=== PATIENT | male | born 1940 | race Caucasian/White ===

== ENCOUNTER 2019-04-30 12:41 | Inpatient (IN) ==
[2019-04-30] MEDS ORDERED: *HR* Heparin 5,000 UNIT/ML VIAL IVP PRN ×2 (12:56)
[2019-04-30] MEDS ORDERED: *HR* Heparin 5,000 UNIT/ML VIAL IVP ONE (12:56)
[2019-04-30 13:41] LABS: Hematocrit 43.9 % (37.5-50.1); Hemoglobin 15.3 g/dL (12.9-16.9); Mean Corpuscular HGB Conc 34.9 g/dL (31.6-35.5); Mean Corpuscular Hemoglobin 30.8 pg (28.0-33.3); Mean Corpuscular Volume 88.5 fL (83.0-100.0); Mean Platelet Volume 9.1 fL (9.4-12.4); Platelet Count 194 K/mcL (140-400); Red Blood Count 4.96 M/mcL (4.19-5.50); Red Cell Distribution Width 13.4 % (11.5-14.5); White Blood Count 4.8 K/mcL (4.3-11.1)
[2019-04-30 13:45] LABS: Heparin anti-factor XA UFH 0.02 IU/mL (0.30-0.70); Prothrombin Time 11.4 Seconds (9.4-12.1)
[2019-04-30] MEDS: Heparin 25,000 UNIT/250 ML D5W 25,000 UNIT/250 ML IV.SOLN IVC SCH (14:39)
[2019-04-30 15:43] LABS: Chol/HDL Ratio 5.8 (0-4.9)
[2019-04-30 15:46] LABS: BUN/Creatinine Ratio 18 (6-26); Blood Urea Nitrogen 17 mg/dL (8-23); Calcium 9.7 mg/dL (8.6-10.3); Carbon Dioxide 30 mEq/L (23-29); Chloride 103 mEq/L (98-107); Glucose 96 mg/dL (70-105); Osmolality,Calculated 289 (280-300); Potassium 4.3 mEq/L (3.5-5.1); Sodium 139 mEq/L (136-145); eGFR For African Americans > 60 (> 60); eGFR For Non-African Americans > 60 (> 60)
[2019-04-30 16:02] LABS: Troponin I 0.11 ng/mL (< 0.04)
[2019-05-01] MEDS: Aspirin Enteric Coated 81 MG Tablet PO SCH (08:42)
[2019-05-01 10:17] LABS: Estimated Average Glucose 117 mg/dl
[2019-05-01] MEDS: Heparin 25,000 UNIT/250 ML D5W 25,000 UNIT/250 ML IV.SOLN IVC SCH (11:18)
[2019-05-01] MEDS ORDERED: Lidocaine 2% Syringe 100 MG/5 ML IV ONE (13:59)
[2019-05-01] MEDS ORDERED: Sodium Bicarbonate 50 MEQ/50 ML VIAL IVC ONE (13:59)
[2019-05-01] MEDS ORDERED: Mannitol 25% vial 12.5 GM/50 ML VIAL IVP ONE (13:59)
[2019-05-01] MEDS ORDERED: D5% in Water 250 ML IV BAG IV ONE (13:59)
[2019-05-01] MEDS ORDERED: Tranexamic Acid 1,000 MG/10 ML VIAL IVP ONE (13:59)
[2019-05-01] MEDS ORDERED: Heparin 1,000 UNITS/500 mL IV.SOLN IVC ONE (13:59)
[2019-05-01] MEDS ORDERED: *HR* Heparin 10,000 UNIT/10 ML VIAL IV ONE (13:59)
[2019-05-01] MEDS ORDERED: *HR* Phenylephrine 10 MG/ML VIAL IVC ONE (13:59)
[2019-05-01] MEDS ORDERED: *HR* Magnesium Sulfate 2 GM/50 ML PIGGYBACK IVPB ONE (13:59)
[2019-05-01] MEDS ORDERED: Albumin Human 25% 25 GM/100 ML IV.SOLN IV ONE (13:59)
[2019-05-01] MEDS ORDERED: Heparin 1,000 UNITS/500 mL 500 ML ONE (15:20)
[2019-05-01] MEDS ORDERED: *HR* Heparin 10,000 UNIT/10 ML VIAL ONE (15:20)
[2019-05-01] MEDS ORDERED: 0.9 % Sodium Chloride 1,000 ML ONE ×2 (15:20→15:27)
[2019-05-01] MEDS ORDERED: Nitroglycerin 1,000 MCG/10 ML VIAL IV ONE (15:20)
[2019-05-01] MEDS ORDERED: ISOVUE-370 200 ML INFUS..BTL ONE (15:20)
[2019-05-01] MEDS ORDERED: *HR* Midazolam HCl 2 MG/2 ML VIAL ONE (15:46)
[2019-05-01] MEDS ORDERED: *HR* FentaNYL (PF) 100 MCG/2 ML VIAL ONE (15:46)
[2019-05-01] MEDS: Chlorhexidine Rinse 15 ML MOUTHWASH MM SCH (21:32)
[2019-05-02] MEDS: Chlorhexidine Rinse 15 ML MOUTHWASH MM SCH ×2 (05:44→19:44)
[2019-05-02] MEDS ORDERED: Aspirin 81 MG TAB.CHEW PO ONE (06:00)
[2019-05-02] MEDS ORDERED: *HR* FentaNYL (PF) 1,000 MCG/20 ML VIAL ONE (06:45)
[2019-05-02] MEDS ORDERED: *HR* Midazolam HCl 5 MG/5 ML VIAL IVP ONE (06:45)
[2019-05-02] MEDS ORDERED: *HR* Propofol 200 MG/20 ML VIAL IVP ONE (06:45)
[2019-05-02] MEDS ORDERED: *HR* Rocuronium Bromide 50 MG/5 ML VIAL ONE ×3 (06:47→11:36)
[2019-05-02] MEDS ORDERED: *HR* PHENYLEPHRINE 1,000 MCG/10 ML SYRINGE IVP ONE (06:47)
[2019-05-02] MEDS ORDERED: Dexamethasone 4 MG/ML VIAL ONE (06:47)
[2019-05-02] MEDS ORDERED: *HR* Magnesium Sulfate 1 GM/2 ML VIAL ONE (06:48)
[2019-05-02] MEDS ORDERED: Famotidine 20 MG/2 ML VIAL ONE (06:48)
[2019-05-02] MEDS ORDERED: Tranexamic Acid 1,000 MG/10 ML VIAL ONE (06:57)
[2019-05-02] MEDS: CeFAZolin Syr 2,000MG/20 ML 2,000 MG/20 ML SYRINGE IVPB ONE ×2 (07:39→08:30)
[2019-05-02] MEDS: Aspirin Enteric Coated 81 MG Tablet PO SCH (07:40)
[2019-05-02] MEDS ORDERED: Dextrose 50 % in Water (Vial) 30 ML, Sodium Bicarbonate 20 MEQ, Lidocaine 1% 5 ML, Insu... TH ONE ×3 (07:45)
[2019-05-02] MEDS ORDERED: Insulin Human Regular 100 UNIT in 0.9 % Sodium Chloride 100 ML IV PRN (07:45)
[2019-05-02] MEDS ORDERED: Heparin 15,000 UNIT in 0.9 % Sodium Chloride 500 ML IV ONE (07:45)
[2019-05-02] MEDS ORDERED: Dextrose 50 % in Water (Vial) 30 ML, Sodium Bicarbonate 20 MEQ, Potassium Chloride 15 M... TH ONE (07:45)
[2019-05-02] MEDS ORDERED: Norepinephrine 4 MG in 0.9 % Sodium Chloride 250 ML IVC PRN (07:45)
[2019-05-02] MEDS ORDERED: Vancomycin 1,000 MG VIAL ONE (07:52)
[2019-05-02] MEDS ORDERED: Lidocaine 2% Syringe 100 MG/5 ML ONE (07:57)
[2019-05-02 08:18] LABS: ABG Base Excess -1 mEq/L (-2 to 3); ABG Chloride 107 mEq/L (98-107); ABG Glucose 106 mg/dL (60-95); ABG HCO3 26 mEq/L (21-27); ABG Oxygen Saturation 100 % (95-98); ABG PCO2 51 mmHg (35-45); ABG PH 7.31 pH Units (7.32-7.45); ABG PO2 274 mmHg (85-104); ABG TCO2 27 mEq/L (20-26)
[2019-05-02] MEDS ORDERED: *HR* FentaNYL (PF) 250 MCG/5 ML VIAL ONE (09:29)
[2019-05-02] MEDS ORDERED: Calcium Gluconate 1,000 MG/10 ML VIAL ONE (09:51)
[2019-05-02] MEDS ORDERED: Protamine Sulfate 250 MG/25 ML VIAL IVP ONE (09:51)
[2019-05-02 09:59] LABS: ABG Base Excess -1 mEq/L (-2 to 3); ABG Chloride 105 mEq/L (98-107); ABG Glucose 118 mg/dL (60-95); ABG HCO3 25 mEq/L (21-27); ABG Ionized Calcium 1.21 mmol/L (1.15-1.35); ABG Oxygen Saturation 99 % (95-98); ABG PCO2 42 mmHg (35-45); ABG PH 7.37 pH Units (7.32-7.45); ABG PO2 127 mmHg (85-104); ABG TCO2 26 mEq/L (20-26)
[2019-05-02 10:40] LABS: ABG Base Excess -1 mEq/L (-2 to 3); ABG Chloride 103 mEq/L (98-107); ABG Glucose 170 mg/dL (60-95); ABG HCO3 24 mEq/L (21-27); ABG Ionized Calcium 1.07 mmol/L (1.15-1.35); ABG Oxygen Saturation 100 % (95-98); ABG PCO2 38 mmHg (35-45); ABG PO2 428 mmHg (85-104); ABG TCO2 25 mEq/L (20-26)
[2019-05-02 11:14] LABS: ABG Base Excess -2 mEq/L (-2 to 3); ABG Chloride 100 mEq/L (98-107); ABG Glucose 144 mg/dL (60-95); ABG HCO3 22 mEq/L (21-27); ABG Ionized Calcium 1.09 mmol/L (1.15-1.35); ABG Oxygen Saturation 100 % (95-98); ABG PCO2 35 mmHg (35-45); ABG PH 7.41 pH Units (7.32-7.45); ABG PO2 344 mmHg (85-104); ABG TCO2 23 mEq/L (20-26)
[2019-05-02] MEDS ORDERED: 0.9 % Sodium Chloride 500 ML ONE (11:18)
[2019-05-02 11:19] LABS: ABG Base Excess 2 mEq/L (-2 to 3); ABG Chloride 102 mEq/L (98-107); ABG Glucose 118 mg/dL (60-95); ABG HCO3 26 mEq/L (21-27); ABG Ionized Calcium 1.46 mmol/L (1.15-1.35); ABG Oxygen Saturation 100 % (95-98); ABG PCO2 42 mmHg (35-45); ABG PH 7.41 pH Units (7.32-7.45); ABG PO2 276 mmHg (85-104); ABG TCO2 28 mEq/L (20-26)
[2019-05-02 11:47] LABS: ABG Base Excess -2 mEq/L (-2 to 3); ABG Chloride 104 mEq/L (98-107); ABG Glucose 99 mg/dL (60-95); ABG HCO3 23 mEq/L (21-27); ABG Ionized Calcium 1.18 mmol/L (1.15-1.35); ABG Oxygen Saturation 100 % (95-98); ABG PCO2 40 mmHg (35-45); ABG PH 7.37 pH Units (7.32-7.45); ABG PO2 305 mmHg (85-104); ABG TCO2 24 mEq/L (20-26)
[2019-05-02] MEDS: niCARdipine 20 MG in 0.9 % Sodium Chloride 192 ML IVC SCH ×6 (12:30→22:01)
[2019-05-02] MEDS ORDERED: Ondansetron 4 MG/2 ML VIAL IVP PRN (12:41)
[2019-05-02] MEDS ORDERED: Acetaminophen 650 MG RECTAL SUPP RC PRN (12:41)
[2019-05-02] MEDS ORDERED: Insulin Regular, Human 100 UNIT/ML IV PRN (12:41)
[2019-05-02] MEDS ORDERED: Calcium Gluconate 1gm/50mL 1 GM/50 ML BAG IVPB PRN (12:41)
[2019-05-02] MEDS ORDERED: Potassium Chloride 40 MEQ/200 ML BAG IVPB PRN (12:41)
[2019-05-02] MEDS ORDERED: Acetaminophen 325 MG TABLET PO PRN (12:41)
[2019-05-02] MEDS ORDERED: *HR* Dextrose 50 % in Water (Syg) 50 ML SYRINGE IVP PRN (12:41)
[2019-05-02] MEDS ORDERED: Insulin Human Regular 100 UNIT in 0.9 % Sodium Chloride 100 ML IVC SCH (12:45)
[2019-05-02] MEDS ORDERED: Norepinephrine 4 MG in 0.9 % Sodium Chloride 250 ML IVC SCH (12:45)
[2019-05-02 12:58] LABS: ABG Base Excess 1 mEq/L (-2 to 3); ABG HCO3 28 mEq/L (21-27); ABG Oxygen Saturation 87 % (95-98); ABG PCO2 52 mmHg (35-45); ABG PH 7.34 pH Units (7.32-7.45); ABG PO2 57 mmHg (85-104); ABG TCO2 30 mEq/L (20-26); Blood Gas VT 500 cc
[2019-05-02 13:01] LABS: Basophils % 0.3 %; Eosinophils % 0.3 %; Hematocrit 38.5 % (37.5-50.1); Hemoglobin 13.8 g/dL (12.9-16.9); Immature Granulocytes % 1.8 % (0-4); Lymphocytes % 7.9 %; Mean Corpuscular HGB Conc 35.8 g/dL (31.6-35.5); Mean Corpuscular Hemoglobin 31.6 pg (28.0-33.3); Mean Corpuscular Volume 88.1 fL (83.0-100.0); Mean Platelet Volume 9.3 fL (9.4-12.4); Monocytes # 0.8 K/mcL (0.0-1.3); Monocytes % 6.2 %; Neutrophils # 10.4 K/mcL (1.6-8.9); Platelet Count 147 K/mcL (140-400); Red Blood Count 4.37 M/mcL (4.19-5.50); Red Cell Distribution Width 13.5 % (11.5-14.5); Segmented Neutrophils % 83.5 %
[2019-05-02 13:02] LABS: White Blood Count 12.5 K/mcL (4.3-11.1)
[2019-05-02 13:10] LABS: INR 1.2; Prothrombin Time 13.3 Seconds (9.4-12.1)
[2019-05-02 13:13] LABS: Activated Partial Thrombo Time 25.6 Seconds (26.0-36.0)
[2019-05-02 13:17] LABS: BUN/Creatinine Ratio 18 (6-26); Blood Urea Nitrogen 17 mg/dL (8-23); Calcium 8.7 mg/dL (8.6-10.3); Carbon Dioxide 27 mEq/L (23-29); Chloride 106 mEq/L (98-107); Glucose 158 mg/dL (70-105); Magnesium 2.6 mg/dL (1.6-2.6); Osmolality,Calculated 293 (280-300); Potassium 3.9 mEq/L (3.5-5.1); Sodium 139 mEq/L (136-145); eGFR For African Americans > 60 (> 60); eGFR For Non-African Americans > 60 (> 60)
[2019-05-02] MEDS: *HR* FentaNYL (PF) 100 MCG/2 ML VIAL IVP PRN ×3 (13:58→19:44)
[2019-05-02] MEDS: 0.9 % Sodium Chloride w KCl 20 MEQ/1,000 ML MLS IVC SCH (14:00)
[2019-05-02] MEDS: Pantoprazole 40 MG VIAL IVP SCH (14:08)
[2019-05-02] MEDS: *HR* OxyCODONE/APAP 5/325 TABLET PO PRN ×2 (14:43→21:40)
[2019-05-02 16:22] LABS: ABG Base Excess -1 mEq/L (-2 to 3); ABG HCO3 25 mEq/L (21-27); ABG Oxygen Saturation 90 % (95-98); ABG PCO2 43 mmHg (35-45); ABG PH 7.37 pH Units (7.32-7.45); ABG PO2 61 mmHg (85-104); ABG TCO2 26 mEq/L (20-26); Blood Gas Modality CPAP/PS; Blood Gas Pressure Support 10 cm H2O
[2019-05-02] MEDS: *HR* Metoprolol 5 MG/5 ML VIAL IVP PRN ×2 (16:22→23:19)
[2019-05-02 17:39] LABS: ABG Base Excess 0 mEq/L (-2 to 3); ABG HCO3 26 mEq/L (21-27); ABG Oxygen Saturation 91 % (95-98); ABG PCO2 43 mmHg (35-45); ABG PH 7.38 pH Units (7.32-7.45); ABG PO2 63 mmHg (85-104); ABG TCO2 27 mEq/L (20-26)
[2019-05-02] MEDS: Ketorolac 15 MG/ML VIAL IVP SCH ×2 (17:39→23:05)
[2019-05-02] MEDS: Metoclopramide 10 MG/2 ML VIAL IVP SCH ×2 (17:40→23:05)
[2019-05-03 03:12] LABS: Basophils % 0.2 %; Hematocrit 34.6 % (37.5-50.1); Immature Granulocytes % 0.7 % (0-4); Lymphocytes # 0.6 K/mcL (0.6-4.6); Lymphocytes % 6.1 %; Mean Corpuscular HGB Conc 33.8 g/dL (31.6-35.5); Mean Corpuscular Hemoglobin 31.3 pg (28.0-33.3); Mean Corpuscular Volume 92.5 fL (83.0-100.0); Mean Platelet Volume 9.6 fL (9.4-12.4); Monocytes # 1.2 K/mcL (0.0-1.3); Monocytes % 11.9 %; Neutrophils # 8.3 K/mcL (1.6-8.9); Platelet Count 145 K/mcL (140-400); Red Blood Count 3.74 M/mcL (4.19-5.50); Red Cell Distribution Width 13.9 % (11.5-14.5); Segmented Neutrophils % 81.1 %; White Blood Count 10.2 K/mcL (4.3-11.1)
[2019-05-03 03:15] LABS: Hemoglobin 11.7 g/dL (12.9-16.9)
[2019-05-03 03:19] LABS: INR 1.2; Prothrombin Time 13.5 Seconds (9.4-12.1)
[2019-05-03 03:22] LABS: Activated Partial Thrombo Time 23.8 Seconds (26.0-36.0)
[2019-05-03 03:34] LABS: BUN/Creatinine Ratio 20 (6-26); Blood Urea Nitrogen 20 mg/dL (8-23); Calcium 8.2 mg/dL (8.6-10.3); Carbon Dioxide 24 mEq/L (23-29); Chloride 109 mEq/L (98-107); Glucose 126 mg/dL (70-105); Osmolality,Calculated 294 (280-300); Potassium 4.6 mEq/L (3.5-5.1); Sodium 140 mEq/L (136-145); eGFR For African Americans > 60 (> 60); eGFR For Non-African Americans > 60 (> 60)
[2019-05-03] MEDS: *HR* FentaNYL (PF) 100 MCG/2 ML VIAL IVP PRN (04:09)
[2019-05-03] MEDS: *HR* Metoprolol 5 MG/5 ML VIAL IVP PRN (04:52)
[2019-05-03] MEDS: Metoclopramide 10 MG/2 ML VIAL IVP SCH ×4 (05:01→23:37)
[2019-05-03] MEDS: Ketorolac 15 MG/ML VIAL IVP SCH ×4 (05:01→23:37)
[2019-05-03] MEDS ORDERED: Aspirin Enteric Coated 81 MG Tablet PO SCH (09:00)
[2019-05-03] MEDS ORDERED: Furosemide 20 MG/2 ML VIAL IVP SCH (09:00)
[2019-05-03] MEDS: Chlorhexidine Rinse 15 ML MOUTHWASH MM SCH ×2 (09:04→20:29)
[2019-05-03] MEDS: *HR* OxyCODONE/APAP 5/325 TABLET PO PRN ×3 (09:04→23:36)
[2019-05-03] MEDS: Pantoprazole 40 MG VIAL IVP SCH (09:04)
[2019-05-03] MEDS: 0.9 % Sodium Chloride w KCl 20 MEQ/1,000 ML MLS IVC SCH (12:55)
[2019-05-03] MEDS ORDERED: Insulin Regular, Human 100 UNIT/ML IV PRN (13:33)
[2019-05-03] MEDS ORDERED: Ondansetron 4 MG/2 ML VIAL IVP PRN (13:33)
[2019-05-03] MEDS ORDERED: Acetaminophen 325 MG TABLET PO PRN (13:33)
[2019-05-03] MEDS ORDERED: *HR* Dextrose 50 % in Water (Syg) 50 ML SYRINGE IVP PRN (13:33)
[2019-05-03] MEDS ORDERED: Insulin Human Regular 100 UNIT in 0.9 % Sodium Chloride 100 ML IVC SCH (13:33)
[2019-05-03] MEDS ORDERED: D5% in Water 1,000 ML IVC PRN (13:33)
[2019-05-03] MEDS ORDERED: Dextrose Gel 15 GM/37.5 ML TUBE PO PRN ×2 (13:33)
[2019-05-03] MEDS: Insulin LISPRO 300 UNITS/3 ML VIAL SQ SCH ×3 (16:59→20:31)
[2019-05-03] MEDS: Furosemide 20 MG/2 ML VIAL IVP SCH (17:01)
[2019-05-03] MEDS: *HR* Heparin 5,000 UNIT/ML VIAL SQ SCH ×2 (17:06→18:46)
[2019-05-04 04:31] LABS: Basophils % 0.4 %; Eosinophils # 0.1 K/mcL (0.0-0.6); Eosinophils % 0.8 %; Hematocrit 35.9 % (37.5-50.1); Immature Granulocytes % 0.3 % (0-4); Lymphocytes % 13.1 %; Mean Corpuscular HGB Conc 33.4 g/dL (31.6-35.5); Mean Corpuscular Volume 92.8 fL (83.0-100.0); Mean Platelet Volume 9.8 fL (9.4-12.4); Monocytes % 12.6 %; Neutrophils # 5.8 K/mcL (1.6-8.9); Platelet Count 114 K/mcL (140-400); Red Blood Count 3.87 M/mcL (4.19-5.50); Red Cell Distribution Width 14.2 % (11.5-14.5); Segmented Neutrophils % 72.8 %; White Blood Count 7.9 K/mcL (4.3-11.1)
[2019-05-04] MEDS: Metoclopramide 10 MG/2 ML VIAL IVP SCH ×3 (05:37→17:02)
[2019-05-04] MEDS: Ketorolac 15 MG/ML VIAL IVP SCH ×3 (05:37→16:52)
[2019-05-04] MEDS: *HR* Heparin 5,000 UNIT/ML VIAL SQ SCH ×2 (05:37→16:46)
[2019-05-04] MEDS: Chlorhexidine Rinse 15 ML MOUTHWASH MM SCH ×2 (07:40→20:04)
[2019-05-04] MEDS: Furosemide 20 MG/2 ML VIAL IVP SCH ×2 (07:40→16:47)
[2019-05-04] MEDS: Pantoprazole 40 MG VIAL IVP SCH (07:40)
[2019-05-04] MEDS: Aspirin Enteric Coated 81 MG Tablet PO SCH (07:41)
[2019-05-04] MEDS: Insulin LISPRO 300 UNITS/3 ML VIAL SQ SCH ×4 (07:41→20:15)
[2019-05-04] MEDS: *HR* OxyCODONE/APAP 5/325 TABLET PO PRN (20:04)
[2019-05-05] MEDS: Ketorolac 15 MG/ML VIAL IVP SCH ×3 (00:21→11:56)
[2019-05-05] MEDS: Metoclopramide 10 MG/2 ML VIAL IVP SCH ×3 (00:22→11:56)
[2019-05-05] MEDS: *HR* Heparin 5,000 UNIT/ML VIAL SQ SCH (05:54)
[2019-05-05 08:03] LABS: Basophils % 0.3 %; Eosinophils # 0.1 K/mcL (0.0-0.6); Eosinophils % 1.3 %; Hematocrit 39.1 % (37.5-50.1); Hemoglobin 12.9 g/dL (12.9-16.9); Immature Granulocytes % 0.4 % (0-4); Lymphocytes # 0.8 K/mcL (0.6-4.6); Lymphocytes % 10.8 %; Mean Corpuscular Hemoglobin 31.2 pg (28.0-33.3); Mean Corpuscular Volume 94.4 fL (83.0-100.0); Mean Platelet Volume 9.7 fL (9.4-12.4); Monocytes # 0.9 K/mcL (0.0-1.3); Monocytes % 11.3 %; Neutrophils # 5.7 K/mcL (1.6-8.9); Platelet Count 143 K/mcL (140-400); Red Blood Count 4.14 M/mcL (4.19-5.50); Red Cell Distribution Width 13.7 % (11.5-14.5); Segmented Neutrophils % 75.9 %; White Blood Count 7.5 K/mcL (4.3-11.1)
[2019-05-05 08:21] LABS: BUN/Creatinine Ratio 24 (6-26); Blood Urea Nitrogen 23 mg/dL (8-23); Calcium 8.9 mg/dL (8.6-10.3); Carbon Dioxide 29 mEq/L (23-29); Chloride 102 mEq/L (98-107); Glucose 144 mg/dL (70-105); Osmolality,Calculated 294 (280-300); Potassium 4.3 mEq/L (3.5-5.1); Sodium 139 mEq/L (136-145); eGFR For African Americans > 60 (> 60); eGFR For Non-African Americans > 60 (> 60)
[2019-05-05] MEDS: Furosemide 20 MG/2 ML VIAL IVP SCH (08:45)
[2019-05-05] MEDS: Aspirin Enteric Coated 81 MG Tablet PO SCH (08:45)
[2019-05-05] MEDS: Chlorhexidine Rinse 15 ML MOUTHWASH MM SCH (08:45)
[2019-05-05] MEDS: Pantoprazole 40 MG VIAL IVP SCH (08:45)
[2019-05-05] MEDS: Insulin LISPRO 300 UNITS/3 ML VIAL SQ SCH ×2 (08:46→11:54)
[2019-05-05 09:24] VITALS: BP 121/64
== END 2019-05-05 14:00 | disposition home or self-care (01) | DRG 229 ==
LOC: 2ANU 12:41 → EMEROOARM 12:41 → SUATTDRO 13:38 → 2ANU 14:54 → ICNU 05-01 22:37
PROVIDERS: ADMIT Internal Medicine; ATTEND Thoracic Surgery (Cardiothoracic Vascular Surgery)

== ENCOUNTER 2019-05-16 18:14 | Observation (INO) ==
[2019-05-16] MEDS ORDERED: *HR* Heparin 5,000 UNIT/ML VIAL IVP ONE (20:41)
[2019-05-16] MEDS ORDERED: *HR* Heparin 5,000 UNIT/ML VIAL IVP PRN ×2 (20:41)
[2019-05-16] MEDS ORDERED: Heparin 25,000 UNIT/250 ML D5W 25,000 UNIT/250 ML IV.SOLN IVC SCH (20:45)
[2019-05-16 21:14] LABS: Hematocrit 37.7 % (37.5-50.1); Hemoglobin 12.3 g/dL (12.9-16.9); Immature Granulocytes % 0.5 % (0-4); Lymphocytes % 15.9 %; Mean Corpuscular HGB Conc 32.6 g/dL (31.6-35.5); Mean Corpuscular Hemoglobin 30.5 pg (28.0-33.3); Mean Corpuscular Volume 93.5 fL (83.0-100.0); Mean Platelet Volume 9.1 fL (9.4-12.4); Monocytes % 9.5 %; Platelet Count 310 K/mcL (140-400); Red Blood Count 4.03 M/mcL (4.19-5.50); Red Cell Distribution Width 12.8 % (11.5-14.5); Segmented Neutrophils % 71.6 %; White Blood Count 5.5 K/mcL (4.3-11.1)
[2019-05-16 21:15] LABS: Basophils % 0.5 %; Eosinophils # 0.1 K/mcL (0.0-0.6); Lymphocytes # 0.9 K/mcL (0.6-4.6); Monocytes # 0.5 K/mcL (0.0-1.3); Neutrophils # 3.9 K/mcL (1.6-8.9)
[2019-05-16 21:16] LABS: INR 1.1
[2019-05-16 21:19] LABS: Activated Partial Thrombo Time 27.4 Seconds (26.0-36.0)
[2019-05-16 21:32] LABS: BUN/Creatinine Ratio 10 (6-26); Blood Urea Nitrogen 10 mg/dL (8-23); Calcium 9.4 mg/dL (8.6-10.3); Carbon Dioxide 30 mEq/L (23-29); Chloride 102 mEq/L (98-107); Glucose 86 mg/dL (70-105); Osmolality,Calculated 288 (280-300); Potassium 4.4 mEq/L (3.5-5.1); Sodium 140 mEq/L (136-145); eGFR For African Americans > 60 (> 60); eGFR For Non-African Americans > 60 (> 60)
[2019-05-17] MEDS ORDERED: Naloxone 0.4 MG/ML INJ IVP PRN (00:46)
[2019-05-17] MEDS ORDERED: cefTRIAXone 2,000 MG in 0.9 % Sodium Chloride Mini Bag 100 ML IVPB ONE (00:50)
[2019-05-17] MEDS ORDERED: *HR* OxyCODONE/APAP 5/325 TABLET PO PRN (00:51)
[2019-05-17 04:30] LABS: Basophils % 0.5 %; Eosinophils # 0.1 K/mcL (0.0-0.6); Hematocrit 34.9 % (37.5-50.1); Hemoglobin 11.7 g/dL (12.9-16.9); Immature Granulocytes % 0.2 % (0-4); Immature Reticulocyte % 13.7 % (11.0-38.0); Lymphocytes # 0.9 K/mcL (0.6-4.6); Lymphocytes % 15.6 %; Mean Corpuscular HGB Conc 33.5 g/dL (31.6-35.5); Mean Corpuscular Hemoglobin 31.3 pg (28.0-33.3); Mean Corpuscular Volume 93.3 fL (83.0-100.0); Mean Platelet Volume 9.2 fL (9.4-12.4); Monocytes # 0.5 K/mcL (0.0-1.3); Monocytes % 8.4 %; Neutrophils # 4.1 K/mcL (1.6-8.9); Platelet Count 280 K/mcL (140-400); Red Blood Count 3.74 M/mcL (4.19-5.50); Red Cell Distribution Width 12.9 % (11.5-14.5); Retculocyte # 0.05 M/mcL (0.05-0.10); Reticulocyte % 1.3 % (1.6-2.8); Segmented Neutrophils % 73.3 %; White Blood Count 5.6 K/mcL (4.3-11.1)
[2019-05-17 04:32] LABS: INR 1.2; Prothrombin Time 13.2 Seconds (9.4-12.1)
[2019-05-17 04:43] LABS: % Iron Saturation 6 % (20-55); Alanine Aminotransferase 9 Units/L (7-52); Albumin 3.3 g/dL (3.5-5.7); Albumin/Globulin Ratio 1.4 (1.1-2.2); Alkaline Phosphatase 57 Units/L (34-104); Aspartate Amino Transferase 12 Units/L (13-39); BUN/Creatinine Ratio 17 (6-26); Bilirubin,Total 0.3 mg/dL (0.3-1.0); Blood Urea Nitrogen 15 mg/dL (8-23); Calcium 8.5 mg/dL (8.6-10.3); Carbon Dioxide 26 mEq/L (23-29); Chloride 106 mEq/L (98-107); Cholesterol 106 mg/dL (< 200); Globulin 2.4 g/dL (2.4-3.5); Glucose 191 mg/dL (70-105); HDL Cholesterol 21 mg/dL (40-59); Iron 16 mcg/dL (65-175); LDL Cholesterol,Calculated 31 mg/dL (0-99); Magnesium 1.9 mg/dL (1.6-2.6); Osmolality,Calculated 294 (280-300); Phosphorous 3.1 mg/dL (2.7-4.5); Potassium 4.1 mEq/L (3.5-5.1); Sodium 139 mEq/L (136-145); Total Protein 5.7 g/dL (6.4-8.9); Transferrin 183 mg/dL (203-362); Triglycerides 271 mg/dL (< 150); eGFR For African Americans > 60 (> 60); eGFR For Non-African Americans > 60 (> 60)
[2019-05-17 05:00] LABS: Ferritin 121 ng/mL (20-250)
[2019-05-17 05:10] LABS: Folate > 22.3 ng/mL (3.0-16.0); Vitamin B12 523 pg/mL (250-1100)
[2019-05-17] MEDS ORDERED: cephALEXin 500 MG CAPSULE PO SCH (09:00)
[2019-05-17] MEDS ORDERED: Magnesium Oxide 400 MG TABLET PO SCH (09:00)
[2019-05-17] MEDS ORDERED: Aspirin Enteric Coated 325 MG Tablet PO SCH (09:00)
[2019-05-17 11:27] VITALS: BP 124/70
[2019-05-17] MEDS ORDERED: Apixaban 5 MG TABLET PO SCH (11:32)
[2019-05-18] MEDS ORDERED: Aspirin Enteric Coated 81 MG Tablet PO SCH (09:00)
== END 2019-05-17 12:52 | disposition home or self-care (01) ==
LOC: 2NNU 18:14 → EMEROOARM 18:14 → SUATTDRO 23:59 → 2NNU 05-17 00:32
PROVIDERS: ADMIT Student in an Organized Health Care Education/Training Program; ATTEND Family Medicine